=== PATIENT | male | born 1980 | race Caucasian/White ===

== ENCOUNTER 2019-10-04 22:29 | Emergency (ER) | payer BC, OTHER ==
[~2019-10-04] VITALS: Ht 185.4 cm; Wt 162.4 kg
--- NOTE | 2019-10-04 23:03 | PHYS DOC ---
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 About an hour ago he had some mild chest pressure on the way to the emergency room he said that he thinks it was considered was worried about how he was feeling but since then and before no chest pain no shortness of breath no headache he says he's had high blood press ure readings but not been treated in the past no other past medical history no daily medications. Symptoms are resolving now. Review of Systems Review of Systems Constitutional: Denies fever or chills [] Eyes: Denies change in visual acuity, redness, or eye pain [] HENT: Denies nasal congestion or sore throat [] Respiratory: Denies cough or shortness of breath [] Musculoskeletal: Denies back pain or joint pain [] Integument: Denies rash or skin lesions [] Neurologic: Denies headache, focal weakness or sensory changes [] Endocrine: Denies polyuria or polydipsia [] All other systems were reviewed and found to be within normal limits, except as documented in this note. Current Medications Current Medications Current Medications Medications (Trade) Dose Ordered Sig/Azra Start Time Stop Time Status Last Admin Dose Admin Aspirin (Children'S Aspirin) 324 mg 1X ONCE 10/04/19 23:15 10/04/19 23:16 Allergies Allergies Allergies Coded Allergies Type Severity Reaction Last Updated Verified Penicillins Allergy Intermediate Rash 11/07/16 Yes Physical Exam Physical Exam Constitutional: Well developed, well nourished, no acute distress, non-toxic appearance. [] HENT: Normocephalic, atraumatic, bilateral external ears normal, oropharynx moist, no oral exudates, nose normal. [] Eyes: PERRLA, EOMI, conjunctiva normal, no discharge. [] Neck: Normal range of motion, no tenderness, supple, no stridor. [] Cardiovascular:Heart rate regular rhythm, no murmur [] Lungs & Thorax: Bilateral breath sounds clear to auscultation [] Abdomen: Bowel sounds normal, soft, no tenderness, no masses, no pulsatile masses. [] Skin: Warm, dry, no erythema, no rash. [] Back: No tenderness, no CVA tenderness. [] Extremities: No tenderness, no cyanosis, no clubbing, ROM intact, no edema. [] Neurologic: Alert and oriented X 3, normal motor function, normal sensory function, no focal deficits noted. [] Psychologic: Affect normal, judgement normal, mood normal. [] Current Patient Data Vital Signs BP is 143/106 in the emergency room EKG EKG []EKG shows a normal sinus rhythm with a rate of 89 no acute ischemic changes noted interpreted by me the time of encounter. No STEMI Radiology/Procedures Radiology/Procedures [] Impressions: Mild hazy densities posterior medially in the superior segments of the upper lobes bilaterally, right greater than left which may reflect some infiltrate or atelectasis. No pleural effusions or pleural-based lesions in the left lung field correlate with the chest x-ray abnormality which is probably due to superimposed soft tissues. Fatty liver. Electronically signed by: Chasity Kilpatrick MD (10/05/2019 12:34 AM) [facility] Course & Med Decision Making Course & Med Decision Making Pertinent Labs and Imaging studies reviewed. 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 There may be some subtle atelectasis versus infiltrate patient has had a mild cough so we will treat with doxycycline. Patient has blood sugar of 302 this is likely related to new diagnosis of diabetes he plans to obtain primary care within the next week I did give him a short amount of metformin as well and gave him good return precautions and he voiced understanding of instructions. Dragon Disclaimer Dragon Disclaimer This electronic medical record was generated, in whole or in part, using a voice recognition dictation system. Departure Departure: Impression: Primary Impression: Elevated blood pressure reading Additional Impression: Hyperglycemia Disposition: HOME, SELF-CARE Condition: STABLE Referrals: PCP,NO (PCP) Scripts Doxycycline Hyclate (DOXYCYCLINE HYCLATE) 100 Mg Capsule 1 CAP PO BID for pneumonia, #14 CAP Prov: BRYANT ESQUIVEL MD 10/05/19 Metformin Hcl (METFORMIN HCL) 500 Mg Tablet 1 TAB PO BID for diabetes, #30 TAB 0 Refills please dont start metformin until 10/08/19 Prov: BRYANT ESQUIVEL MD 10/05/19 Problem Qualifiers BRYANT ESQUIVEL MD Oct 04, 2019 23:03
--- NOTE | 2019-10-04 23:12 | EKG ---
[address] [address] Test Date: 2019-10-04 Test Time: 22:53:39 Pat Name: NAMRATA GARCIA Department: Room: Gender: M Physician In Private Practice: : 1980 Requested By: BRYANT ESQUIVEL Order Number: [id number] Reading MD: Measurements Intervals [place] Rate: 89 P: 27 GA: 162 QRS: 51 QRSD: 88 T: 24 QT: 326 QTc: 402 Interpretive Statements SINUS RHYTHM NO SPECIFIC ECG ABNORMALITIES RI6.01 No previous ECG available for comparison
[2019-10-04 23:14] LABS: BASO # 0.1 x10^3/uL (0.0-0.2); BASO % 1 % (0-3); EOS # 0.3 x10^3/uL (0.0-0.7); EOS % 3 % (0-3); HEMATOCRIT 44.6 % (39.0-53.0); HEMOGLOBIN 14.7 g/dL (13.0-17.5); LYMPH # 2.9 x10^3/uL (1.0-4.8); LYMPH % 32 % (24-48); MEAN CORPUSCULAR HEMOGLOBIN 31 pg (25-35); MEAN CORPUSCULAR HGB CONC 33 g/dL (31-37); MEAN CORPUSCULAR VOLUME 94 fL (79-100); MONO # 0.8 x10^3/uL (0.0-1.1); MONO % 9 % (0-9); NEUT % 55 % (31-73); PLATELET COUNT 327 x10^3/uL (140-400); RED BLOOD COUNT 4.76 x10^6/uL (4.30-5.70); RED CELL DISTRIBUTION WIDTH 12.8 % (11.5-14.5); WHITE BLOOD COUNT 9.1 x10^3/uL (4.0-11.0)
[2019-10-04] MEDS ORDERED: ASPIRIN 81 MG TAB.CHEW PO ONE (23:15)
[2019-10-04 23:22] LABS: CALCIUM 8.7 mg/dL (8.5-10.1); CREATININE 0.9 mg/dL (0.7-1.3); POTASSIUM 4.2 mmol/L (3.5-5.1)
[2019-10-04 23:29] LABS: ALBUMIN 3.8 g/dL (3.4-5.0); TOTAL BILIRUBIN 0.3 mg/dL (0.2-1.0); TOTAL PROTEIN 7.5 g/dL (6.4-8.2)
--- NOTE | 2019-10-04 23:43 | RAD ---
Chest AP only at 2249: Reason for examination: Chest pain. No previous exams for comparison. The heart size is normal. Mediastinum is unremarkable. Lung santos show some pleural-based density laterally on the left. This may be artifactual but cannot exclude pleural abnormality. Right lung field is clear. No acute bony abnormalities are seen. Impression: Pleural density laterally in the left lung field. Further evaluation with CT may be helpful. Electronically signed by: Chasity Kilpatrick MD (10/04/2019 11:40 PM) [facility]
[2019-10-04] MEDS ORDERED: CONTRAST GIVEN MC PRN (23:45)
[2019-10-05] MEDS ORDERED: IV NORMAL SALINE 1,000ML 1,000 ML IV ONE (00:30)
[2019-10-05] MEDS ORDERED: IOHEXOL 300 MG/ML 75 ML VIAL. IV ONE (00:30)
--- NOTE | 2019-10-05 00:37 | RAD ---
CT chest with contrast: Reason for examination: Chest pain. Evaluate pleural density seen on chest x-ray. Helical images were obtained through the chest with intravenous administration of 75 cc Omnipaque 300. Reconstruction was performed in sagittal and coronal planes. Exposure: One or more of the following individualized dose reduction techniques were utilized for this examination: 1. Automated exposure control 2. Adjustment of the mA and/or kV according to patient size 3. Use of iterative reconstruction technique. No abnormality seen at the thyroid gland. The trachea and mainstem bronchi show no intraluminal lesions. No abnormality seen at the esophagus. The thoracic aorta shows no aneurysmal dilatation or dissection. The heart size is normal with no pericardial effusion. The lung santos show some mild hazy density consistent with some mild infiltrates or atelectasis posterior medially in the superior segment of the right lower lobe and to a lesser extent in the superior segment of the left lower lobe. No pleural effusions are seen. No pneumothorax is present. There is a thoracic scoliosis. No acute bony abnormalities are seen. The liver shows some fatty infiltration but no focal lesion. No abnormality seen at the spleen, adrenal glands pancreas or visualized portion of the gallbladder. IMPRESSION: Mild hazy densities posterior medially in the superior segments of the upper lobes bilaterally, right greater than left which may reflect some infiltrate or atelectasis. No pleural effusions or pleural-based lesions in the left lung field correlate with the chest x-ray abnormality which is probably due to superimposed soft tissues. Fatty liver. Electronically signed by: Chasity Kilpatrick MD (10/05/2019 12:34 AM) [facility]
[2019-10-05 01:26] VITALS: BP 152/85
[2019-10-05] MEDS ORDERED: METF500T16 PO (01:44)
[2019-10-05] MEDS ORDERED: DOXY100C2 PO (01:44)
== END 2019-10-05 01:51 | disposition home or self-care (01) ==
LOC: ER 22:29
DX: R03.0 Elevated blood-pressure reading, without diagnosis of hypertension (principal); R73.9 Hyperglycemia, unspecified; R42 Dizziness and giddiness; M19.90 Unspecified osteoarthritis, unspecified site
CPT/HCPCS: 36415; 71045; 71260; 80053; 84484; 85025; 93005; 96360; 99285; Q9967; J7030

== ENCOUNTER 2021-08-02 20:44 | Emergency (ER) | payer BC ==
[~2021-08-02] VITALS: Ht 185.4 cm; Wt 148.6 kg
[~2021-08-02 20:44] MED LIST: DOXY100C3 PO; METF500T16 PO
--- NOTE | 2021-08-02 20:49 | PHYS DOC ---
Past History Past Medical History: Arthritis Additional Past Medical Histor: RA, spondylosis, bone spur Past Surgical History: Other Additional Past Surgical Histo: hip surgery Alcohol Use: Occasionally Drug Use: None Adult General HPI HPI Patient is a 41-year-old male who presents with groin pain that started about 2 hours before coming into the emergency department while patient was sitting, 7 out of 10, dull and achy in nature just superior and to the left of the penis with no radiation. States he never had anything like this before and denies any recent traumas, illnesses, fevers, abdominal pain, chest pain, shortness of breath, nausea, vomiting, diarrhea. Denies any history of hernia. States he is making urine and stool normally for him. Denies any blood in either. Denies any penile or scrotal pain. Review of Systems Review of Systems Review of systems otherwise unremarkable except noted in HPI Allergies Allergies Allergies Coded Allergies Type Severity Reaction Last Updated Verified Penicillins Allergy Intermediate Rash 11/07/16 Yes Physical Exam Physical Exam Constitutional: Well developed, well nourished, no acute distress, non-toxic appearance. [] HENT: Normocephalic, atraumatic, bilateral external ears normal, oropharynx moist, no oral exudates, nose normal. [] Eyes: conjunctiva normal, no discharge. [] Cardiovascular:Heart rate regular rhythm, no murmur [] Lungs & Thorax: Bilateral breath sounds clear to auscultation [] Abdomen: soft, mild tenderness just superior and laterally to the left of the penis with no obvious no masses, no pulsatile masses, no bruising, normal circumcised penis with no tenderness or injury, normal scrotum no tenderness. [] Skin: Warm, dry, no erythema, no rash. [] Back: no CVA tenderness. [] Extremities: No tenderness, no cyanosis, no clubbing, ROM intact, no edema. [] Neurologic: Alert and oriented X 3, normal motor function, normal sensory function, no focal deficits noted. [] Psychologic: Affect normal, judgement normal, mood normal. [] EKG EKG [] Radiology/Procedures Radiology/Procedures [] Heart Score C/O Chest Pain: No Risk Factors: Risk Factors: DM, Current or recent (<one month) smoker, HTN, HLP, family history of CAD, obesity. Risk Scores: Risk Factors: DM, Current or recent (<one month) smoker, HTN, HLP, family history of CAD, obesity. Course & Med Decision Making Course & Med Decision Making Patient is a 41-year-old male who presents with groin pain which started 2 hours before coming into the emergency department Vital signs notable for tachycardia and hypertension. Physical exam noted a cesar. Given ice pack and Toradol. Dragon Disclaimer Dragon Disclaimer This electronic medical record was generated, in whole or in part, using a voice recognition dictation system. Departure Departure: Impression: Primary Impression: Ureterolithiasis Disposition: HOME / SELF CARE / HOMELESS Condition: GOOD Referrals: NACHO PEDERSEN MD (PCP) Patient Instructions: Diet for Kidney Stones, Kidney Stones Additional Instructions: Thank you for coming into the emergency department tonight and allowing us to take care of you. Please read the attached information carefully to go over some of the things we discussed. Please take ibuprofen and your prescription pain medicine and your other prescriptions as we discussed. Please be sure to drink plenty of water. Please follow-up on first thing Wednesday morning with your primary care physician to discuss your ED visit of kidney stones and need for further evaluation and treatment. As we discussed however your stone is relatively small and is about to be passed. Please strain your urine as we discussed to evaluate when stone does pass. Please come back to the ED with new or concerning symptoms as discussed. Scripts Tamsulosin Hcl (FLOMAX) 0.4 Mg Cap.er.24h 1 CAP PO DAILY for kidney stone for 7 Days, #7 CAP 11 Refills Prov: ANNELISE PHAM MD 08/02/21 Hydrocodone Bit/Acetaminophen (HYDROCODONE-APAP 5-325 ) 1 Each Tablet 1 TAB PO PRN Q6HRS PRN for kidney stone for 3 Days, #12 TAB 0 Refills Prov: ANNELISE PHAM MD 08/02/21 ANNELISE PHAM MD Aug 02, 2021 20:49
[2021-08-02] MEDS ORDERED: IOHEXOL 300 MG/ML 75 ML VIAL. IV ONE (21:15)
[2021-08-02] MEDS ORDERED: CONTRAST GIVEN. MC PRN (21:15)
[2021-08-02] MEDS ORDERED: KETOROLAC 15 MG/ML VIAL. IVP ONE (21:15)
--- NOTE | 2021-08-02 22:28 | RAD ---
Exam: CT pelvis with contrast INDICATION: Pain just superior and to the left of the penis TECHNIQUE: Sequential axial images through the pelvis obtained following the administration of 74 mL of Isovue-370 IV contrast. Sagittal and coronal reformatted images were reconstructed from the axial data and reviewed. Exposure: One or more of the following in the visualized dose reduction techniques were utilized for this examination: 1. Automated exposure control 2. Adjustment of the MA and/or KV according to patient size 3. Use of iterative of reconstructive technique Comparisons: None FINDINGS: There is a 4 mm calculus at the distal left ureter with delayed enhancement of the partially visualiz ed left kidney. Bladder is partially distended and not well evaluated. Prostate is not enlarged. Pelvic vasculature is normal. Bone mineralization is normal. Hip joints, pubic symphysis sacroiliac joints are well-maintained. Dio ateral pars interarticularis defects at L5. No associated anterolisthesis. No acute fracture. IMPRESSION: A 4 mm calculus the distal left ureter causing delayed enhancement of the left kidney. Electronically signed by: Bo Allen MD (08/02/2021 10:25 PM) [facility]
[2021-08-02] MEDS ORDERED: HYDR-2155 PO (22:40)
[2021-08-02] MEDS ORDERED: TAMS0.4C97 PO (22:40)
[2021-08-02] MEDS ORDERED: oxyCODONE/APAP 5/325 1 TAB TABLET PO ONE (22:45)
[2021-08-02] MEDS ORDERED: TAMSULOSIN 0.4 MG CAP.ER.24H. PO ONE (22:45)
[2021-08-02 22:57] VITALS: BP 190/110
== END 2021-08-02 22:57 | disposition home or self-care (01) ==
LOC: ER 20:44
DX: N20.1 Calculus of ureter (principal); M06.9 Rheumatoid arthritis, unspecified; Z88.0 Allergy status to penicillin
CPT/HCPCS: 72193; 96374; 99285; J1885; Q9967